=== PATIENT | male | born 1960 | race Caucasian/White ===

== ENCOUNTER 2021-07-31 09:36 | Inpatient (IN) ==
[2021-07-31 10:28] LABS: Basophils % 0.3 %; Eosinophils # 0.2 K/mcL (0.0-0.6); Eosinophils % 1.4 %; Hematocrit 49.6 % (37.5-50.1); Hemoglobin 16.4 g/dL (12.9-16.9); Immature Granulocytes % 0.3 % (0-4); Immature Platelets 9.1 % (1.1-6.1); Lymphocytes % 16.8 %; Mean Corpuscular HGB Conc 33.1 g/dL (31.6-35.5); Mean Corpuscular Hemoglobin 32.8 pg (28.0-33.3); Mean Corpuscular Volume 99.2 fL (83.0-100.0); Mean Platelet Volume 10.7 fL (9.4-12.4); Monocytes # 0.6 K/mcL (0.0-1.3); Monocytes % 4.8 %; Neutrophils # 9.1 K/mcL (1.6-8.9); Red Cell Distribution Width 12.3 % (11.5-14.5); Segmented Neutrophils % 76.4 %; White Blood Count 11.9 K/mcL (4.3-11.1)
[2021-07-31 10:32] LABS: Platelet Count 88 K/mcL (140-400)
[2021-07-31 10:55] LABS: BUN/Creatinine Ratio 28 (6-26); Blood Urea Nitrogen 29 mg/dL (6-20); Calcium 9.3 mg/dL (8.6-10.3); Carbon Dioxide 28 mEq/L (23-29); Chloride 104 mEq/L (98-107); Glucose 112 mg/dL (70-105); Osmolality,Calculated 295 (280-300); Potassium 4.2 mEq/L (3.5-5.1); Sodium 139 mEq/L (136-145); Troponin I < 0.03 ng/mL (< 0.04); eGFR For African Americans > 60 (> 60); eGFR For Non-African Americans > 60 (> 60)
[2021-07-31] MEDS ORDERED: Naloxone 0.4 MG/ML INJ IVP PRN (12:20)
[2021-07-31] MEDS ORDERED: Isovue-370 500 ML BOTTLE IVP ONE ×2 (12:20→17:27)
[2021-07-31] MEDS ORDERED: Melatonin 3 MG TABLET PO PRN (12:20)
[2021-07-31] MEDS ORDERED: Ondansetron ODT 4 MG TAB.RAPDIS SL PRN (12:20)
[2021-07-31] MEDS ORDERED: Mag Hydrox/Al Hydrox/Simeth 30 ML UDC PO PRN (12:20)
[2021-07-31] MEDS ORDERED: Aspirin Enteric Coated 81 MG Tablet PO SCH (12:30)
[2021-07-31] MEDS ORDERED: Perflutren Lipid Microsphere 1.3 ML in 0.9 % Sodium Chloride 8.7 ML IVP PRN (12:55)
[2021-07-31] MEDS: lisinopriL 20 MG TABLET PO SCH (16:42)
[2021-07-31] MEDS: Nicotine 21 MG PATCH.TD24 TD SCH (16:42)
[2021-08-01 01:28] LABS: Basophils % 0.5 %; Immature Granulocytes % 0.4 % (0-4); Red Cell Distribution Width 12.3 % (11.5-14.5)
[2021-08-01 01:30] LABS: Basophils # 0.1 K/mcL (0.0-0.2); Eosinophils # 0.3 K/mcL (0.0-0.6); Eosinophils % 2.7 %; Hematocrit 44.5 % (37.5-50.1); Hemoglobin 15.1 g/dL (12.9-16.9); Immature Platelets 8.2 % (1.1-6.1); Lymphocytes # 2.9 K/mcL (0.6-4.6); Lymphocytes % 25.3 %; Mean Corpuscular HGB Conc 33.9 g/dL (31.6-35.5); Mean Corpuscular Hemoglobin 33.4 pg (28.0-33.3); Mean Corpuscular Volume 98.5 fL (83.0-100.0); Monocytes # 0.7 K/mcL (0.0-1.3); Monocytes % 6.5 %; Neutrophils # 7.3 K/mcL (1.6-8.9); Red Blood Count 4.52 M/mcL (4.19-5.50); Segmented Neutrophils % 64.6 %; White Blood Count 11.3 K/mcL (4.3-11.1)
[2021-08-01 01:36] LABS: Platelet Count 84 K/mcL (140-400)
[2021-08-01 01:43] LABS: BUN/Creatinine Ratio 30 (6-26); Blood Urea Nitrogen 28 mg/dL (6-20); Carbon Dioxide 25 mEq/L (23-29); Chloride 106 mEq/L (98-107); Chol/HDL Ratio 4.5 (0-4.9); Cholesterol 165 mg/dL (< 200); Glucose 88 mg/dL (70-105); HDL Cholesterol 37 mg/dL (40-59); LDL Cholesterol,Calculated 97 mg/dL (< 100); Osmolality,Calculated 293 (280-300); Potassium 3.8 mEq/L (3.5-5.1); Sodium 139 mEq/L (136-145); Triglycerides 157 mg/dL (< 150); eGFR For African Americans > 60 (> 60); eGFR For Non-African Americans > 60 (> 60)
[2021-08-01 01:57] LABS: Estimated Average Glucose 111 mg/dl; Hemoglobin A1C 5.5 %
[2021-08-01] MEDS ORDERED: *HR* Enoxaparin 40 MG/0.4 ML SYRINGE SQ SCH (06:00)
[2021-08-01 07:27] VITALS: BP 150/81; PULSE 60; TEMP 98.3; O2SAT 92
[2021-08-01] MEDS: Nicotine 21 MG PATCH.TD24 TD SCH (08:47)
[2021-08-01] MEDS: lisinopriL 20 MG TABLET PO SCH (08:47)
[2021-08-01] MEDS ORDERED: Aspirin Enteric Coated 325 MG Tablet PO SCH (09:00)
== END 2021-08-01 13:04 | disposition home or self-care (01) | DRG 45 ==
LOC: 3BNU 09:36 → EMEROOARM 09:36 → SUATTDRO 12:49 → 3BNU 14:06
PROVIDERS: ADMIT Internal Medicine; ATTEND Registered Nurse